=== PATIENT | male | born 1960 | race Caucasian/White ===

== ENCOUNTER → 2018-06-12 | Outpatient (CLI) | payer MEDICARE, MEDICAID ==
[~2018-06-12] MED LIST: BENZ1LOZ51 PO; BETA15CR5 TD; CARB15DR70 EACH EAR; CARB200T13 PO; CETI10TA24 PO; CHOL200024 PO; CICL15CR3 TD; CLOB15CR19 TD; DOCU100T6 PO; METR45CR TD; MINE50OI TD; MULT1TAB50 PO; NAPR-763 PO; OLAN10TA9 PO; OMEG1CAP23 PO; PRIM250T PO; SALI10002 PO; SODI100G PO; ZIPR80CA3 PO; [UNRECOGNIZED DRUG - OTHER]; [UNRECOGNIZED DRUG - OTHER] TD
[2018-06-12 13:26] LABS: MICROSCOPIC AUTO
[2018-06-12 13:47] LABS: BASOPHILS # (AUTO) 0.05 x10^3/uL (0-0.1); BASOPHILS % (AUTO) 1 % (0-1); EOSINOPHILS # (AUTO) 0.39 x10^3/uL (0-0.4); EOSINOPHILS % (AUTO) 5 % (1-7); LYMPHOCYTES # (AUTO) 2.55 x10^3/uL (1-3.4); LYMPHOCYTES % (AUTO) 32 % (22-44); MD NO; MEAN CORPUSCULAR HEMOGLOBIN 34.2 pg (27.5-34.5); MEAN CORPUSCULAR HGB CONC 34.7 g/dL (33.2-36.2); MEAN CORPUSCULAR VOLUME 98.5 fL (81-97); MEAN PLATELET VOLUME 7.4 fL (7.4-10.4); MONOCYTES # (AUTO) 1.01 x10^3/uL (0.2-0.8); MONOCYTES % (AUTO) 13 % (2-9); NEUTROPHILS # (AUTO) 3.96 x10^3/uL (1.8-6.8); NEUTROPHILS % (AUTO) 50 % (42-75); PLATELET COUNT 307 x10^3/uL (130-400); RED BLOOD COUNT 4.64 x10^6/uL (4.38-5.82); RED CELL DISTRIBUTION WIDTH 12.9 % (9.4-14.8)
[2018-06-12 13:54] LABS: CULTURE INDICATED? YES
[2018-06-12 13:59] LABS: ALANINE AMINOTRANSFERASE 30 U/L (12-78); ALBUMIN 3.8 g/dL (3.4-5.0); ANION GAP 4 mmol/L (5-15); CALCIUM 8.6 mg/dL (8.5-10.1); CHLORIDE 94 mmol/L (98-107); CREATININE 0.78 mg/dL (0.7-1.3)
[2018-06-12 14:01] LABS: ALKALINE PHOSPHATASE 79 U/L (45-117); BILIRUBIN,TOTAL 0.5 mg/dL (0.2-1.0); TOTAL PROTEIN 8.1 g/dL (6.4-8.2)
[2018-06-12 14:06] LABS: INTERNATIONAL NORMALIZED RATIO 1.01 (0.93-1.1); PROTHROMBIN TIME 10.7 Seconds (9.6-11.5)
== END | disposition home or self-care (01) ==
LOC: STAR 12:34
PROVIDERS: ATTEND Neurological Surgery
DX: Z01.818 Encounter for other preprocedural examination (principal); M51.36 Other intervertebral disc degeneration, lumbar region
CPT/HCPCS: 36415; 71046; 80053; 81001; 85025; 85610; 85730; 87086; 87147; 93005

== ENCOUNTER 2018-07-01 14:46 | Inpatient (IN) | payer MEDICARE, MEDICAID ==
[2018-06-12 12:38] VITALS: BP 137/84
[~2018-07-01] VITALS: Ht 182.9 cm; Wt 120.0 kg
[~2018-07-01 14:46] MED LIST changes: +BACITRACIN 50,000 UNIT ONE; +BUPIVACAINE/PF-EPI 0.5% 1:200K ONE; +THROMBIN 5,000 UNIT VIAL TP ONE; +VANCOMYCIN 1,000 MG ONE
[2018-07-01] MEDS ORDERED: LACTATED RINGERS 1,000 ML IV SCH (16:56)
[2018-07-01] MEDS ORDERED: MIDAZOLAM 1 MG/ML, 2ML ONE (18:23)
[2018-07-01] MEDS ORDERED: FENTANYL PF 250 MCG/5ML ONE (18:23)
[2018-07-01] MEDS ORDERED: FENTANYL PF 100 MCG/2ML ONE ×2 (19:47→21:09)
[2018-07-01] MEDS ORDERED: methylPREDNISolone SOD SUCC 125 MG/2 ML ONE (19:48)
[2018-07-01] MEDS ORDERED: BACITRACIN 50,000 UNIT IRRIG ONE (19:52)
[2018-07-01] MEDS ORDERED: THROMBIN 5,000 UNIT VIAL TP ONE (19:53)
[2018-07-01] MEDS ORDERED: FENTANYL PF 100 MCG/2ML EPIDPUSH ONE (19:53)
[2018-07-01] MEDS ORDERED: MIDAZOLAM 1 MG/ML, 2ML IV PRN (20:30)
[2018-07-01] MEDS ORDERED: ACETAMINOPHEN 325 MG TABLET PO PRN (20:30)
[2018-07-01] MEDS ORDERED: ONDANSETRON 2MG/ML, 2ML IV PRN (20:30)
[2018-07-01] MEDS ORDERED: METOPROLOL 1 MG/ML, 5ML IV PRN (20:30)
[2018-07-01] MEDS ORDERED: HYDROmorphone 2 MG/ML, 1ML IVPush PRN (20:30)
[2018-07-01] MEDS ORDERED: hydrALAzine 20 MG/ML, 1ML IV PRN (20:30)
[2018-07-01] MEDS ORDERED: PROMETHAZINE 25 MG/ML, 1ML IV PRN (20:30)
[2018-07-01] MEDS ORDERED: ALBUTEROL/IPRATROPIUM 2.5MG/0.5MG, 3 ML NPPB PRN (20:30)
[2018-07-01] MEDS ORDERED: OXYcodone 5 MG/5 ML ORAL.SOL UDC PO PRN (20:30)
[2018-07-01] MEDS ORDERED: ONDANSETRON 2MG/ML, 2ML ONE (20:38)
[2018-07-01] MEDS ORDERED: GLYCOPYRROLATE 0.2MG/1ML, 5ML ONE (20:38)
[2018-07-01] MEDS ORDERED: DEXAMETHASONE 4 MG/ML, 1ML ONE (20:38)
[2018-07-01] MEDS ORDERED: PROPOFOL 10 MG/ML, 20ML ONE (20:38)
[2018-07-01] MEDS ORDERED: CEFAZOLIN 1,000 MG ONE (20:38)
[2018-07-01] MEDS ORDERED: NEOSTIGMINE 1 MG/ML, 10ML ONE (20:38)
[2018-07-01] MEDS ORDERED: ROCURONIUM 10MG/ML,5ML ONE (20:38)
[2018-07-01] MEDS ORDERED: SUCCINYLCHOLINE 20 MG/ML, 10ML ONE (20:38)
[2018-07-01] MEDS ORDERED: PHARMACY MAY ADJ FOR RENAL FX MC PRN (21:00)
[2018-07-01] MEDS: NS + 20MEQ KCL 1,000 ML IV SCH (21:00)
[2018-07-01] MEDS: METHOCARBAMOL 750 MG TABLET PO SCH (21:00)
[2018-07-01] MEDS ORDERED: CARBAMAZEPINE 600 MG PO SCH (21:00)
[2018-07-01] MEDS ORDERED: HYDROmorphone 1 MG/ML, 1ML IVPush PRN (21:00)
[2018-07-01] MEDS ORDERED: PROMETHAZINE 25 MG/ML, 1ML IM PRN (21:00)
[2018-07-01] MEDS: HYDROcodone/APAP 10/325 MG TABLET PO SCH (21:00)
[2018-07-01] MEDS ORDERED: OLANZAPINE 10 MG PO SCH (21:00)
[2018-07-01] MEDS ORDERED: SODIUM FLUORIDE PO SCH (21:00)
[2018-07-01] MEDS ORDERED: LABETALOL 5MG/ML, 20ML IVPush PRN (21:00)
[2018-07-01] MEDS ORDERED: ZIPRASIDONE HCL PO SCH (21:00)
[2018-07-01] MEDS ORDERED: BISACODYL 10 MG SUPP PR PRN (21:00)
[2018-07-01] MEDS ORDERED: MAGNESIUM HYDROXIDE 8%, 30ML UDC PO PRN (21:00)
[2018-07-01] MEDS ORDERED: DIPHENHYDRAMINE 50 MG CAPSULE PO PRN (21:00)
[2018-07-01] MEDS ORDERED: ONDANSETRON 2MG/ML, 2ML IVPush PRN (21:00)
[2018-07-01] MEDS ORDERED: PRIMIDONE 250 MG PO SCH (21:00)
[2018-07-01] MEDS ORDERED: OXYcodone 5 MG/5 ML ORAL.SOL UDC ONE (21:09)
[2018-07-01] MEDS: FENTANYL PF 100 MCG/2ML IV PRN ×4 (21:19→21:54)
[2018-07-01] MEDS ORDERED: METHOCARBAMOL 750 MG TABLET ONE (21:26)
[2018-07-01] MEDS: SODIUM CHLORIDE FLUSH 10ML SYR IVF SCH (23:29)
[2018-07-02 00:08] VITALS: BP 129/79
[2018-07-02] MEDS: HYDROcodone/APAP 10/325 MG TABLET PO SCH ×6 (00:28→21:11)
[2018-07-02] MEDS: CEFAZOLIN PMX 1GM/50ML 50 ML IVPB SCH ×2 (03:24→14:18)
[2018-07-02 04:00] VITALS: BP 123/61
[2018-07-02] MEDS: METHOCARBAMOL 750 MG TABLET PO SCH ×3 (05:27→21:12)
[2018-07-02] MEDS: NS + 20MEQ KCL 1,000 ML IV SCH ×2 (07:44→17:28)
[2018-07-02 08:14] VITALS: BP 110/65
[2018-07-02] MEDS: PRIMIDONE 250 MG TABLET PO SCH ×2 (08:19→21:12)
[2018-07-02] MEDS: CARBAMAZEPINE 200 MG TABLET PO SCH (08:19)
[2018-07-02] MEDS: CETIRIZINE 10 MG TABLET PO SCH (08:19)
[2018-07-02] MEDS: SODIUM CHLORIDE FLUSH 10ML SYR IVF SCH ×2 (08:20→21:13)
[2018-07-02] MEDS ORDERED: SENNA/DOCUSATE TABLET PO SCH (09:00)
[2018-07-02 15:23] VITALS: BP 132/82
[2018-07-02 19:52] VITALS: BP 112/66
[2018-07-02] MEDS: OLANZAPINE 10 MG TABLET PO SCH (21:12)
[2018-07-02] MEDS: ZIPRASIDONE 40MG CAPSULE PO SCH (21:13)
[2018-07-03] MEDS: CARBAMAZEPINE 200 MG TABLET PO SCH ×3 (00:04→22:19)
[2018-07-03 02:21] VITALS: BP 104/57
[2018-07-03 02:24] VITALS: BP 104/57
[2018-07-03] MEDS: HYDROcodone/APAP 10/325 MG TABLET PO SCH ×6 (02:40→22:11)
[2018-07-03] MEDS: NS + 20MEQ KCL 1,000 ML IV SCH ×2 (03:00→21:00)
[2018-07-03] MEDS: METHOCARBAMOL 750 MG TABLET PO SCH ×3 (06:23→22:12)
[2018-07-03 07:45] VITALS: BP 136/74
[2018-07-03] MEDS: SENNA/DOCUSATE TABLET PO SCH ×2 (08:43→22:12)
[2018-07-03] MEDS: CETIRIZINE 10 MG TABLET PO SCH (08:44)
[2018-07-03] MEDS: SODIUM CHLORIDE FLUSH 10ML SYR IVF SCH ×2 (08:49→22:13)
[2018-07-03] MEDS: PRIMIDONE 250 MG TABLET PO SCH ×2 (08:49→22:12)
[2018-07-03] MEDS ORDERED: HYDR-3307 PO (09:56)
[2018-07-03] MEDS ORDERED: METH750T87 PO (09:57)
[2018-07-03 14:45] VITALS: BP 165/78
[2018-07-03 17:52] VITALS: BP 121/73
[2018-07-03 20:00] VITALS: BP 152/71
[2018-07-03] MEDS: ZIPRASIDONE 40MG CAPSULE PO SCH (22:11)
[2018-07-03] MEDS: OLANZAPINE 10 MG TABLET PO SCH (22:19)
[2018-07-04 00:42] VITALS: BP 123/54
[2018-07-04] MEDS: HYDROcodone/APAP 10/325 MG TABLET PO SCH ×4 (01:00→13:27)
[2018-07-04] MEDS: METHOCARBAMOL 750 MG TABLET PO SCH ×2 (05:21→13:27)
[2018-07-04 07:58] VITALS: BP 133/73
[2018-07-04] MEDS: CARBAMAZEPINE 200 MG TABLET PO SCH (08:28)
[2018-07-04] MEDS: PRIMIDONE 250 MG TABLET PO SCH (08:28)
[2018-07-04] MEDS: SENNA/DOCUSATE TABLET PO SCH (08:28)
[2018-07-04] MEDS: SODIUM CHLORIDE FLUSH 10ML SYR IVF SCH (08:29)
[2018-07-04] MEDS: NS + 20MEQ KCL 1,000 ML IV SCH (08:29)
[2018-07-04] MEDS: CETIRIZINE 10 MG TABLET PO SCH (09:22)
[2018-07-04] MEDS ORDERED: POLY119P4 PO (14:12)
[2018-07-04 14:43] VITALS: BP 125/73
== END 2018-07-04 16:10 | disposition home or self-care (01) | DRG 519 ==
LOC: OR 14:46 → 4NOR 22:04 → OR 23:08 → 4NOR 23:09
PROVIDERS: ADMIT Neurological Surgery; ATTEND Neurological Surgery
PROC: 0SB20ZZ Excision of Lumbar Vertebral Disc, Open Approach (ICD-10-PCS; 2018-07-01)
PROC: 01NB0ZZ Release Lumbar Nerve, Open Approach (ICD-10-PCS; principal; 2018-07-01 17:30)
DX: M48.061 Spinal stenosis, lumbar region without neurogenic claudication (principal); E87.1 Hypo-osmolality and hyponatremia; M51.16 Intervertebral disc disorders with radiculopathy, lumbar region; G47.33 Obstructive sleep apnea (adult) (pediatric); E66.3 Overweight; Z68.35 Body mass index [BMI] 35.0-35.9, adult
CPT/HCPCS: 72100; G0378; J0690; J1100; J2250; J2405; J2704; J2710; J3010; J3370; J3490; J0330; J2930; J7120